=== PATIENT | female | born 1985 | race Caucasian/White ===

== ENCOUNTER 2020-01-23 04:34 | Emergency (ER) | payer OTHER ==
[~2020-01-23] VITALS: Ht 172.7 cm; Wt 65.8 kg
--- NOTE | 2020-01-23 04:40 | NUR ---
DR LINDSAY AT BEDSIDE
--- NOTE | 2020-01-23 04:40 | NUR ---
FSBS: 547. DR LINDSAY MADE AWARE
--- NOTE | 2020-01-23 04:40 | NUR ---
JOEY FOR C/O HIGH BLOOD SUGAR. PT A, OX4, AMBULATORY TO BED 3. REPORTED TINGLING SENSATION ON HER TONGUE. CHECKED HER BS AT HOME AND IT WAS 400+ . SELF MEDICATED HERSELF W/ 4 UNITS OF REGULAR INSULINE SQ PERSONAL CAREGIVER AND CALLED 911. PT WAS PLACED ON MONITOR, VSS. WILL CONT TO MONITOR ,
[2020-01-23 04:51] LABS: APPEARANCE,URINE Clear (CLEAR); BILIRUBIN,URINE Negative (NEGATIVE); BLOOD, URINE Moderate Ery/uL (NEGATIVE); COLOR,URINE Yellow (YELLOW); KETONES,URINE Trace (NEGATIVE); LEUKOCYTE ESTERASE ,URINE Negative (NEGATIVE); NITRITE, URINE Negative (NEGATIVE); PROTEIN,URINE Negative (NEGATIVE); UGLUCOSE 500 MG/DL mg/dL (NEGATIVE); UROBILINOGEN,URINE 0.2 EU/dL (0.2)
[2020-01-23 04:54] LABS: BASOPHILS % (AUTO) 0.8 % (0.0-2.0); EOSINOPHILS % (AUTO) 3.3 % (0.0-6.0); HEMATOCRIT 39 % (33-45); HEMOGLOBIN 13.2 g/dL (11.5-14.8); LYMPHOCYTES # (AUTO) 1.2 /CMM (0.8-4.8); LYMPHOCYTES % (AUTO) 30.1 % (20.0-44.0); MEAN CORPUSCULAR HGB CONC 33 g/dl (31.0-36.0); MEAN CORPUSCULAR VOLUME 92 fL (82-100); MONOCYTES # (AUTO) 0.3 /CMM (0.1-1.30); MONOCYTES % (AUTO) 7.8 % (2.0-12.0); NEUTROPHILS # (AUTO) 2.4 /CMM (1.8-8.9); PLATELET COUNT (AUTO) 215 /CMM (150-450); WHITE BLOOD COUNT (AUTO) 4.1 K/uL (4.3-11.0)
[2020-01-23] MEDS: IV NS 0.9% 1,000 ML BAG IV ONE ×2 (04:55→05:38)
--- NOTE | 2020-01-23 05:02 | NUR ---
X RAY AT THE BED SIDE
[2020-01-23 05:10] LABS: ALBUMIN 3.8 g/dL (3.4-5.0); BILIRUBIN,DIRECT 0.1 mg/dL (0.0-0.2); BILIRUBIN,TOTAL 0.2 mg/dL (0.2-1.0); CALCIUM, SERUM 8.9 mg/dL (8.5-10.1); POTASSIUM 4.1 mmol/L (3.5-5.1); TOTAL PROTEIN, SERUM 7.2 g/dL (6.4-8.2)
[2020-01-23 05:16] LABS: BACTERIA,URINE Few /HPF (None Seen); RBC,URINE 0-2 /HPF (0-2); SQUAMOUS EPITHELIAL CELL,UR Few /HPF (None Seen); WBC,URINE 0-2 /HPF (0-3)
--- NOTE | 2020-01-23 05:25 | NUR ---
FSBS:434 MD AWARE W/ NEW ORDERS; NOTED
[2020-01-23] MEDS ORDERED: INSULIN REGULAR, HUMAN 100 UNIT/ML 10 ML VIAL ONE (05:29)
[2020-01-23] MEDS: INSULIN REGULAR, HUMAN 100 UNIT/ML 10 ML VIAL IV ONE (05:39)
--- NOTE | 2020-01-23 05:40 | NUR ---
pt sitting in bed awake and alert. reposrting feeling better w/ less symptoms. on ongoing ivf therapy and monitoring. VSS. will cont to monitor.
--- NOTE | 2020-01-23 06:24 | NUR ---
FSBS:[address] LINDSAY PT IS OK FOR D/C IF BS<400. DR JOSE MADE AWARE OF THE RECENT BS PER OK TO D/C.
[2020-01-23 06:37] VITALS: BP 148/88
--- NOTE | 2020-01-23 06:37 | NUR ---
IV removed. Catheter intact and site benign. Pressure and 4x4 applied to site. No bleeding noted.Patient discharged to home in stable condition. Rx and Written and verbal after care instructions given. Patient verbalizes understanding of instruction.
== END 2020-01-23 06:38 | disposition home or self-care (01) ==
LOC: ER 04:34
DX: E10.65 Type 1 diabetes mellitus with hyperglycemia (principal); F41.9 Anxiety disorder, unspecified; R94.31 Abnormal electrocardiogram [ECG] [EKG]
CPT/HCPCS: 36415; 71045; 80048; 80076; 81001; 82010; 82962 ×3; 84703; 85025; 93005; 96372; 99285; J1815; J7030 ×2; 81000-TC